=== PATIENT | female | born 1985 | race American Indian/Alaskan Native ===

== ENCOUNTER 2017-11-16 23:04 | Emergency (ER) | payer OTHER ==
[~2017-11-16] VITALS: Ht 172.7 cm; Wt 90.7 kg
[~2017-11-16 23:04] MED LIST: ACET325; ALBIPROI; ALBIPROI INH; AZIT250 PO; DEXGUASY PO; IBUPROFEN; IMMURAN; LEVOTHYROXINE; PLAQUENAL; PREDNISONE TAPER; RXHYDACE PO
[2017-11-16] MEDS ORDERED: HYDSUL200 PO (23:45)
[2017-11-16] MEDS ORDERED: QUET100 PO (23:46)
[2017-11-16] MEDS ORDERED: ERGO400 PO (23:47)
[2017-11-16 23:56] LABS: Source, Urine Clean Catch
[2017-11-16 23:59] LABS: Bilirubin, Urine Neg (Neg); Blood, Urine 1+ (Neg); Glucose Qualitative, Urine Neg (Neg); Ketones, Urine Neg (Neg); Leukocyte Esterase, Urine 3+ (Neg); Nitrite, Urine Neg (Neg); Protein, Urine 1+ (Neg); Urobilinogen, Urine NORM (Normal)
[2017-11-17 00:01] LABS: Appearance, Urine Hazy (Clear); Color, Urine Yellow (P-Yellow)
[2017-11-17 00:06] LABS: Bacteria Mod /hpf; Red Blood Cells, Urine Rare /hpf (0-2); Squamous Epithelial Cells Few /hpf (Few); White Blood Cells, Urine TNTC /hpf (0-5)
[2017-11-17] MEDS ORDERED: CEPH500 PO (00:29)
[2017-11-17] MEDS ORDERED: Pyridium100 MG PO (00:29)
== END 2017-11-17 00:37 | disposition home or self-care (01) ==
LOC: ER 23:04
PROVIDERS: Emergency Medicine
DX: N12 Tubulo-interstitial nephritis, not specified as acute or chronic (principal); Z79.899 Other long term (current) drug therapy; F17.200 Nicotine dependence, unspecified, uncomplicated
CPT/HCPCS: 81001; 81025; 87077; 87086; 87186; 99283

== ENCOUNTER 2018-04-07 14:05 | Emergency (ER) | payer OTHER ==
[~2018-04-07] VITALS: Ht 175.3 cm; Wt 97.5 kg
[~2018-04-07 14:05] MED LIST changes: +CEPH500 PO; +ERGO400 PO; +HYDSUL200 PO; +Pyridium100 MG PO; +QUET100 PO
[2018-04-07] MEDS ORDERED: PRED20 PO (15:31)
[2018-04-07] MEDS ORDERED: ALBU90OI INH (15:31)
== END 2018-04-07 15:36 | disposition home or self-care (01) ==
LOC: ER 14:05
DX: J45.901 Unspecified asthma with (acute) exacerbation (principal); F17.210 Nicotine dependence, cigarettes, uncomplicated; Z91.030 Bee allergy status; Z88.0 Allergy status to penicillin; Z88.5 Allergy status to narcotic agent; Z79.899 Other long term (current) drug therapy
CPT/HCPCS: 71046; 94640; 99283